=== PATIENT | female | born 1960 | race Caucasian/White ===

== ENCOUNTER 2019-04-05 14:34 | Emergency (ER) | payer OTHER ==
[2019-04-05] MEDS ORDERED: MEPERIDINE HCL 25 MG/0.5 ML ONE (15:19)
[2019-04-05] MEDS ORDERED: NA CHLORIDE 0.9% 1,000 ML ONE (15:19)
[2019-04-05] MEDS ORDERED: METOCLOPRAMIDE 10 MG/2mL INJ ONE (15:19)
--- NOTE | 2019-04-05 15:29 | RAD REPORT ---
EXAM DESCRIPTION: CT - Head Brain Wo Cont - 04/05/2019 3:15 pm CLINICAL HISTORY: Headache COMPARISON: None. TECHNIQUE: Axial 5 mm thick images of the head were obtained without IV contrast. All CT scans are performed using dose optimization technique as appropriate and may include automated exposure control or mA/KV adjustment according to patient size. FINDINGS: No intracranial hemorrhage, mass, edema or shift of mid-line structures. No acute infarcti on changes seen. No abnormal extra-axial fluid collections. Ventricles are normal. Mastoid air cells and visualized portions of the paranasal sinuses are clear. No acute bony findings. IMPRESSION: Negative non-contrast CT head examination.
[2019-04-05 16:10] LABS: Urine Blood 2+ (NEG); Urine Glucose 3+ (NEG); Urine Protein 2+ (NEG); Urine Specific Gravity 1.025 (1.005-1.030); Urine pH 5.5 (5.0-7.0)
--- NOTE | 2019-04-05 16:37 | ER ---
Nurse's Notes [facility] Name: Jeanne Ro Age: 58 yrs Sex: Female : 1960 Arrival Date: 04/05/2019 Time: 14:37 Bed 5 Private MD: Lake Cardenas Diagnosis: Migraine;Infectious mononucleosis, unspecified Presentation: 04/05 14:42 Presenting complaint: Patient states: I have had a NGO since Sunday. This is similar la1 to my other migraines but lasting much longer and also has a shocking like component, Pt seen at urgent care and referred here for intractable NGO. Transition of care: patient was not received from another setting of care. Onset of symptoms was April 05, 2019. Risk Assessment: Do you want to hurt yourself or someone else? Patient reports no desire to harm self or others. Initial Sepsis Screen: Does the patient meet any 2 criteria? HR > 90 bpm. Does the patient have a suspected source of infection? No. Patient's initial sepsis screen is negative. Care prior to arrival: None. 14:42 Method Of Arrival: Ambulatory la1 14:42 Acuity: MARY 3 la1 Triage Assessment: 14:45 Headache History: The patient has had previous headaches and this one is similar to bp previous episodes. General: Appears in no apparent distress. uncomfortable, Behavior is cooperative, appropriate for age, anxious. Pain: Complains of pain in top of head Pain currently is 10 out of 10 on a pain scale. Pain began 2-3 days ago. Also complains of photophobia. EENT: No deficits noted. Neuro: No deficits noted. Reports headache. Cardiovascular: No deficits noted. Respiratory: No deficits noted. GI: No signs and/or symptoms were reported involving the gastrointestinal system. : No signs and/or symptoms were reported regarding the genitourinary system. Derm: No deficits noted. Musculoskeletal: Circulation, motion, and sensation intact. Range of motion: intact in all extremities. Historical: - Allergies: 14:46 PENICILLINS; la1 14:46 Benicar; la1 14:46 LIZABETH INHIBITORS; la1 14:46 CEPHALOSPORINS; la1 14:46 Cipro; la1 14:46 Levaquin; la1 - Home Meds: 14:46 losartan oral oral [Active]; unknown BP medicine [Active]; la1 - PMHx: 14:46 Hypertension; Migraines; la1 - PSHx: 14:46 Cholecystectomy; Hysterectomy; Tubal ligation; colon sx; knee sx (r); la1 - Immunization history:: Adult Immunizations up to date. - Social history:: Smoking status: Patient/guardian denies using tobacco. - Ebola Screening: : No symptoms or risks identified at this time. - Family history:: not pertinent. - Hospitalizations: : No recent hospitalization is reported. Screenin:15 Abuse screen: Denies threats or abuse. Denies injuries from another. Nutritional bp screening: No deficits noted. Tuberculosis screening: No symptoms or risk factors identified. Fall Risk None identified. Assessment: 14:45 General: SEE TRIAGE NOTE. bp 15:59 Reassessment: ALL CURRENT ORDERS COMPLETED, RESULTS PENDING. bp 17:09 Reassessment: PT D/C HOME AMBULATORY WITH FAMILY, DX WITH MIGRAINE AND INFECTIOUS MONO. bp Vital Signs: 14:46 BP 157 / 99; Pulse 112; Resp 16; Temp 99.0(O); Pulse Ox 100% on R/A; Weight 70.31 kg; la1 Height 5 ft. 3 in. (160.02 cm); Pain 10/10; 15:59 BP 128 / 62; Pulse 100; Resp 14; Pulse Ox 95% ; bp 17:03 BP 136 / 82; Pulse 96; Resp 16; Temp 99; Pulse Ox 97% ; bp 14:46 Body Mass Index 27.46 (70.31 kg, 160.02 cm) la1 Garland Coma Score: 16:35 Eye Response: spontaneous(4). Verbal Response: oriented(5). Motor Response: obeys rn commands(6). Total: 15. ED Course: 14:37 Patient arrived in ED. mr 14:37 Lake Cardenas MD is Private Physician. mr 14:44 Triage completed. la1 14:46 Arm band placed on left wrist. la1 14:47 Reggie Lamb MD is Attending Physician. rn 14:50 Tuan Winslow, CANDICE is Primary Nurse. bp 15:13 CT completed. Patient tolerated procedure well. Patient moved back from CT. bq 15:15 CT Head Brain wo Cont In Process Unspecified. EDMS 15:15 Patient has correct armband on for positive identification. Bed in low position. Call bp light in reach. Side rails up X2. Adult w/ patient. 15:33 Inserted saline lock: 20 gauge in right forearm, using aseptic technique. Blood bp collected. 17:10 No provider procedures requiring assistance completed. IV discontinued, intact, bp bleeding controlled, No redness/swelling at site. Pressure dressing applied. Administered Medications: 15:32 Drug: NS 0.9% 1000 ml Route: IV; Rate: 1000 ml; Site: right forearm; bp 17:11 Follow up: IV Status: Completed infusion; IV Intake: 1000ml bp 15:33 Drug: Demerol 25 mg Route: IVP; Site: right forearm; bp 17:11 Follow up: Response: Pain is decreased bp 15:33 Drug: Reglan 10 mg Route: IVP; Site: right forearm; bp 17:11 Follow up: Response: Pain is decreased bp Intake: 17:11 IV: 1000ml; Total: 1000ml. bp Outcome: 16:36 Discharge ordered by MD. rn 17:10 Discharged to home ambulatory, with family. bp 17:10 Condition: stable 17:10 Discharge instructions given to patient, Instructed on discharge instructions, follow up and referral plans. medication usage, Demonstrated understanding of instructions, follow-up care, medications, Prescriptions given X 1. 17:12 Patient left the ED. bp Signatures: Dispatcher [employer] Mary Anne MenonsirishaLauren Roman, MD MD rn Attema, Lee, RN RN la1 Tuan Winslow RN RN bp
--- NOTE | 2019-04-05 16:37 | EDPHYS ---
Physician Documentation [facility] Name: Jeanne Ro Age: 58 yrs Sex: Female : 1960 Arrival Date: 04/05/2019 Time: 14:37 Bed 5 Private MD: Lake Cardenas ED Physician Reggie Lamb HPI: 04/05 14:54 This 58 yrs old Female presents to ER via Ambulatory with complaints of rn Headache. 14:54 The patient complains of pain to the top of head. The patient describes the headache as rn aching. Onset: The symptoms/episode began/occurred 3 day(s) ago. Associated signs and symptoms: Pertinent positives: nausea, vomiting, Pertinent negatives: altered mental status, neck stiffness, rash, sinus congestion, sinus tenderness, vision loss, vertigo. Severity of symptoms: At its worst the pain was moderate, "similar to past headaches". Headache History: The patient has had previous headaches and this one is similar to previous episodes. The patient has experienced similar episodes in the past. Reports migraine for 3 days, constant, usually gets better with Excedrin migraine, states similar to preivous migraines other than not going away and this time has electrical component to back of head, electrical component is intermittent. Reports generalized weakness and fatigue.. Historical: - Allergies: 14:46 PENICILLINS; la1 14:46 Benicar; la1 14:46 LIZABETH INHIBITORS; la1 14:46 CEPHALOSPORINS; la1 14:46 Cipro; la1 14:46 Levaquin; la1 - Home Meds: 14:46 losartan oral oral [Active]; unknown BP medicine [Active]; la1 - PMHx: 14:46 Hypertension; Migraines; la1 - PSHx: 14:46 Cholecystectomy; Hysterectomy; Tubal ligation; colon sx; knee sx (r); la1 - Immunization history:: Adult Immunizations up to date. - Social history:: Smoking status: Patient/guardian denies using tobacco. - Ebola Screening: : No symptoms or risks identified at this time. - Family history:: not pertinent. - Hospitalizations: : No recent hospitalization is reported. ROS: 14:54 Constitutional: Negative for fever, chills, and weight loss, Eyes: Negative for injury, rn pain, redness, and discharge, ENT: Negative for injury, pain, and discharge, Neck: Negative for injury, pain, and swelling, Cardiovascular: Negative for chest pain, palpitations, and edema, Respiratory: Negative for shortness of breath, cough, wheezing, and pleuritic chest pain, Abdomen/GI: Negative for abdominal pain, diarrhea, and constipation, MS/Extremity: Negative for injury and deformity, Skin: Negative for injury, rash, and discoloration, Neuro: Negative for numbness, tingling, and seizure. Exam: 14:54 Constitutional: This is a well developed, well nourished patient who is awake, alert, varnish blender to room without difficulty or assistance Head/Face: Normocephalic, atraumatic. Eyes: Pupils equal round and reactive to light, extra-ocular motions intact. Lids and lashes normal. Conjunctiva and sclera are non-icteric and not injected. Cornea within normal limits. Periorbital areas with no swelling, redness, or edema. No nystagmus ENT: Mucous membranes moist. Neck: Trachea midline, no thyromegaly or masses palpated, and no cervical lymphadenopathy. Supple, full range of motion without nuchal rigidity, or vertebral point tenderness. No Meningismus. Skin: Warm, dry with normal turgor. Normal color with no rashes, no lesions, and no evidence of cellulitis. MS/ Extremity: Pulses equal, no cyanosis. Neurovascular intact. Full, normal range of motion. Equal circumference. Neuro: Awake and alert, GCS 15, oriented to person, place, time, and situation. Cranial nerves II-XII grossly intact. Motor strength 5/5 in all extremities. Sensory grossly intact. Cerebellar exam normal. Normal gait. Vital Signs: 14:46 BP 157 / 99; Pulse 112; Resp 16; Temp 99.0(O); Pulse Ox 100% on R/A; Weight 70.31 kg; la1 Height 5 ft. 3 in. (160.02 cm); Pain 10/10; 15:59 BP 128 / 62; Pulse 100; Resp 14; Pulse Ox 95% ; bp 17:03 BP 136 / 82; Pulse 96; Resp 16; Temp 99; Pulse Ox 97% ; bp 14:46 Body Mass Index 27.46 (70.31 kg, 160.02 cm) la1 Cougar Coma Score: 16:35 Eye Response: spontaneous(4). Verbal Response: oriented(5). Motor Response: obeys rn commands(6). Total: 15. MDM: 14:47 Patient medically screened. rn 16:35 Differential diagnosis: hypertensive headache, migraine, tension headache, vasomotor rn headache, mono. Data reviewed: vital signs, nurses notes, lab test result(s), radiologic studies, CT scan, and as a result, I will discharge patient. Counseling: I had a detailed discussion with the patient and/or guardian regarding: the historical points, exam findings, and any diagnostic results supporting the discharge/admit diagnosis, lab results, radiology results, the need for outpatient follow up, to return to the emergency department if symptoms worsen or persist or if there are any questions or concerns that arise at home. Response to treatment: the patient's symptoms have markedly improved after treatment, and as a result, I will discharge patient. Special discussion: I discussed with the patient/guardian in detail that at this point there is no indication for admission to the hospital. It is understood, however, that if the symptoms persist or worsen the patient needs to return immediately for re-evaluation. 04/05 14:54 Order name: [place] Screen Profile; Complete Time: 16:23 rn 04/05 15:27 Order name: Urine Dipstick--Ancillary (enter results); Complete Time: 16:23 04/05 14:54 Order name: CT Head Brain wo Cont; Complete Time: 15:33 rn 04/05 14:54 Order name: IV Start; Complete Time: 15:32 rn 04/05 14:54 Order name: Urine Dipstick-Ancillary (obtain specimen); Complete Time: 15:13 rn Administered Medications: 15:32 Drug: NS 0.9% 1000 ml Route: IV; Rate: 1000 ml; Site: right forearm; bp 17:11 Follow up: IV Status: Completed infusion; IV Intake: 1000ml bp 15:33 Drug: Demerol 25 mg Route: IVP; Site: right forearm; bp 17:11 Follow up: Response: Pain is decreased bp 15:33 Drug: Reglan 10 mg Route: IVP; Site: right forearm; bp 17:11 Follow up: Response: Pain is decreased bp Disposition: 04/05/19 16:36 Discharged to Home. Impression: Migraine, Infectious mononucleosis, unspecified. - Condition is Stable. - Discharge Instructions: Migraine Headache, Infectious Mononucleosis. - Prescriptions for Ultram 50 mg Oral Tablet - take 1 tablet by ORAL route every 6 hours As needed; 20 tablet. - Medication Reconciliation Form, Thank You Letter, Antibiotic Education, Prescription Opioid Use form. - Follow up: Private Physician; When: As needed; Reason: Recheck today's complaints, Re-evaluation by your physician. - Problem is new. - Symptoms have improved. Signatures: Dispatcher [employer] EDMS Reggie Lamb MD MD rn Jeff Chaves RN RN la1 Tuan Winslow RN RN bp Corrections: (The following items were deleted from the chart) 14:57 14:54 Reports migraine for 3 days, constant, usually gets better with Excedrin rn migraine, states similar to preivous migraines other than not going away and this time has electrical component to back of head, electrical component is intermittent. . rn 14:58 14:54 Constitutional: Negative for fever, chills, and weight loss, Eyes: Negative for rn injury, pain, redness, and discharge, rn 17:12 16:36 04/05/2019 16:36 Discharged to Home. Impression: Migraine; Infectious bp mononucleosis, unspecified. Condition is Stable. Discharge Instructions: Migraine Headache. Forms are Medication Reconciliation Form, Thank You Letter, Antibiotic Education, Prescription Opioid Use. Follow up: Private Physician; When: As needed; Reason: Recheck today's complaints, Re-evaluation by your physician. Problem is new. Symptoms have improved. rn
== END 2019-04-05 17:12 | disposition home or self-care (01) ==
LOC: ER 14:34
DX: B27.90 Infectious mononucleosis, unspecified without complication (principal); I10 Essential (primary) hypertension; Z88.0 Allergy status to penicillin; Z88.1 Allergy status to other antibiotic agents; Z88.3 Allergy status to other anti-infective agents; Z88.8 Allergy status to other drugs, medicaments and biological substances
CPT/HCPCS: 36415; 70450; 81003; 86308; 96361; 96374; 96375; 99284; J2175; J2765; J7030

== ENCOUNTER 2019-06-11 11:25 | Emergency (ER) | payer OTHER ==
[2019-06-11] MEDS ORDERED: ONDANSETRON 4 MG/2 ML VIAL ONE ×2 (12:12→13:45)
[2019-06-11] MEDS ORDERED: MORPHINE 4 MG/ML SYR ONE (12:12)
[2019-06-11] MEDS ORDERED: DIPHENHYDRAMINE 50 MG/ML VIAL ONE (12:24)
[2019-06-11 12:33] LABS: Absolute Lymphocytes (CBC) 0.8 K/uL (0.7-4.9); Basophils % 0.2 % (0-1.3); Hematocrit 46.4 % (36.0-45.0); Lymphocytes % 7.5 % (15.3-44.8); MPV 10.1 fL (7.6-11.3); Monocytes % 3.4 % (3.3-12.3); RBC Red Blood Cell Count 5.38 M/uL (3.86-4.86)
[2019-06-11 12:53] LABS: Albumin 4.4 g/dL (3.4-5.0); Bilirubin Direct 0.2 mg/dL (0-0.2); Bilirubin Total 0.7 mg/dL (0.2-1.0); Potassium 3.9 mmol/L (3.5-5.1); Protein, Total 8.4 g/dL (6.4-8.2)
[2019-06-11 13:06] LABS: Blood Morphology Comment NOT SEEN (NOT SEEN); Platelet Estimate ADEQ; Urine White Blood Cell Casts OK
[2019-06-11 13:12] LABS: Urine Blood 2+ (NEG); Urine Glucose NEGATIVE (NEG); Urine Protein 3+ (NEG); Urine Specific Gravity >1.030 (1.005-1.030)
--- NOTE | 2019-06-11 13:57 | RAD REPORT ---
EXAM DESCRIPTION: CT - Abdomen Pelvis W Contrast - 06/11/2019 1:43 pm CLINICAL HISTORY: Abdominal pain with vomiting COMPARISON: none. TECHNIQUE: Computed axial tomography of the abdomen pelvis was obtained. 100 cc Isovue-300 was admin istered intravenously. Oral contrast was not requested which limits evaluation of bowel. All CT scans are performed using dose optimization technique as appropriate and may include automated exposure control or mA/KV adjustment according to patient size. FINDINGS: Fatty liver. Cholecystectomy The Spleen, pancreas, adrenal and kidneys appear unremarkable. There is no evidence of diverticulitis. Couple of small ventral hernias are present. An umbilical hernia is also noted. It contains a small a mount of ascites. Fluid is present throughout most of the small bowel. Small bowel caliber is upper limits normal. Flui d is also present throughout most of the colon. Postsurgical changes involve the sigmoid. IMPRESSION: Fluid within the large and small bowel may indicate an enteritis. If the patient's sympt oms persist a followup plain film abdominal series would be recommended
--- NOTE | 2019-06-11 14:15 | EDPHYS ---
Physician Documentation [facility] Name: Jeanne oR Age: 58 yrs Sex: Female : 1960 Arrival Date: 06/11/2019 Time: 11:27 Bed 18 Private MD: Lake Cardenas ED Physician Reggie Lamb HPI: 06/11 12:10 This 58 yrs old Female presents to ER via Ambulatory with complaints of jr8 Abdominal Swelling, Vomiting. 12:10 The patient presents with abdominal pain that is diffuse, abdominal distention that is jr8 diffuse. Onset: The symptoms/episode began/occurred gradually, 1 week(s) ago, and became worse today. Associated signs and symptoms: Pertinent positives: nausea, vomiting, Pertinent negatives: diarrhea, dysuria, fever, hematuria. The symptoms are described as crampy. Modifying factors: The symptoms are alleviated by nothing, the symptoms are aggravated by food, pressure. Severity of pain: At its worst the pain was moderate in the emergency department the pain is unchanged. The patient has experienced similar episodes in the past, a few times. The patient has not recently seen a physician. Abdominal distension x 1 week with generalized abdominal pain onset this morning with vomiting x 4 episodes. Reports vomit was bilious with a small amount of blood. Reports previous episodes of abdominal distension with unclear diagnosis. Historical: - Allergies: 11:29 LIZABETH INHIBITORS; hj 11:29 Benicar; hj 11:29 CEPHALOSPORINS; hj 11:29 Cipro; hj 11:29 Levaquin; hj 11:29 PENICILLINS; hj - Home Meds: 13:07 losartan Oral [Active]; unknown BP medicine [Active]; tw2 - PMHx: 11:29 Hypertension; Migraines; hj - PSHx: 11:29 Cholecystectomy; Hysterectomy; Tubal ligation; colon sx; knee sx (r); hj - Immunization history:: Adult Immunizations. - Social history:: Smoking status: . - Ebola Screening: : Patient denies travel to an Ebola-affected area in the 21 days before illness onset. ROS: 12:10 Constitutional: Negative for fever, chills, and weight loss, Eyes: Negative for injury, jr8 pain, redness, and discharge, ENT: Negative for injury, pain, and discharge, Neck: Negative for injury, pain, and swelling, Cardiovascular: Negative for chest pain, palpitations, and edema, Respiratory: Negative for shortness of breath, cough, wheezing, and pleuritic chest pain, Back: Negative for injury and pain, : Negative for injury, bleeding, discharge, and swelling, MS/Extremity: Negative for injury and deformity, Skin: Negative for injury, rash, and discoloration, Neuro: Negative for headache, weakness, numbness, tingling, and seizure. 12:10 Abdomen/GI: Positive for abdominal pain, nausea and vomiting, abdominal distension, Negative for diarrhea, black/tarry stool, rectal pain, rectal bleeding. Exam: 12:10 Constitutional: This is a well developed, well nourished patient who is awake, alert, jr8 and in no acute distress. Head/Face: Normocephalic, atraumatic. Eyes: Pupils equal round and reactive to light, extra-ocular motions intact. Lids and lashes normal. Conjunctiva and sclera are non-icteric and not injected. Cornea within normal limits. Periorbital areas with no swelling, redness, or edema. Neck: Trachea midline, no thyromegaly or masses palpated, and no cervical lymphadenopathy. Supple, full range of motion without nuchal rigidity, or vertebral point tenderness. No Meningismus. Cardiovascular: Regular rate and rhythm with a normal S1 and S2. No gallops, murmurs, or rubs. Normal PMI, no JVD. No pulse deficits. Respiratory: Lungs have equal breath sounds bilaterally, clear to auscultation and percussion. No rales, rhonchi or wheezes noted. No increased work of breathing, no retractions or nasal flaring. Back: No spinal tenderness. No costovertebral tenderness. Full range of motion. Skin: Warm, dry with normal turgor. Normal color with no rashes, no lesions, and no evidence of cellulitis. MS/ Extremity: Pulses equal, no cyanosis. Neurovascular intact. Full, normal range of motion. Neuro: Awake and alert, GCS 15, oriented to person, place, time, and situation. Cranial nerves II-XII grossly intact. Motor strength 5/5 in all extremities. Sensory grossly intact. Cerebellar exam normal. Normal gait. 12:10 Abdomen/GI: Inspection: distension, that is moderate, Bowel sounds: diminished, Palpation: moderate abdominal tenderness, in all quadrants, firm. Vital Signs: 11:29 BP 171 / 100; Pulse 108; Resp 18; Temp 99.2(TE); Pulse Ox 97% on R/A; Weight 72.57 kg; hj Height 5 ft. 3 in. (160.02 cm); Pain 7/10; 13:04 BP 145 / 79; Pulse 76; Resp 17; Pulse Ox 96% on 2 lpm NC; tw2 14:10 BP 146 / 83; Pulse 75; Resp 17; Pulse Ox 98% ; tw2 11:29 Body Mass Index 28.34 (72.57 kg, 160.02 cm) hj MDM: 11:36 Patient medically screened. jr8 14:12 Data reviewed: vital signs, nurses notes, lab test result(s), radiologic studies, CT jr8 scan, and as a result, I will discharge patient. Data interpreted: Pulse oximetry: on room air is 96 %. Interpretation: normal. Counseling: I had a detailed discussion with the patient and/or guardian regarding: the historical points, exam findings, and any diagnostic results supporting the discharge/admit diagnosis, lab results, radiology results, the need for outpatient follow up, a family practitioner, a membership sales advisor, to return to the emergency department if symptoms worsen or persist or if there are any questions or concerns that arise at home. Response to treatment: the patient's symptoms have markedly improved after treatment, patient is well hydrated. Special discussion: Based on the patient's Hx, exam, and Dx evaluation, there is no indication for emergent surgery or inpatient Tx. It is understood by the patient/guardian that if the Sx's persist or worsen they need to return immediately for re-evaluation. 06/11 11:37 Order name: Basic Metabolic Panel; Complete Time: 12:53 06/11 11:37 Order name: CBC with Diff; Complete Time: 13:20 [facility] 06/11 11:37 Order name: Creatinine for Radiology; Complete Time: 12:53 06/11 11:37 Order name: Hepatic Function; Complete Time: 12:53 [facility] 06/11 11:37 Order name: Lipase; Complete Time: 12:53 [facility] 06/11 11:58 Order name: Urine Dipstick--Ancillary (enter results); Complete Time: 13:20 06/11 11:37 Order name: IV Saline Lock; Complete Time: 11:52 [facility] 06/11 11:37 Order name: Labs collected and sent; Complete Time: 11:52 [facility] 06/11 11:50 Order name: CT Abd/Pelvis - IV Contrast Only; Complete Time: 14:00 [facility] 06/11 12:39 Order name: CBC Smear Scan; Complete Time: 13:20 EDMS Administered Medications: 11:58 Drug: Zofran 4 mg Route: IVP; Site: right antecubital; tw2 14:30 Follow up: Response: No adverse reaction; Nausea is decreased tw2 12:00 Drug: morphine 4 mg Route: IVP; Site: right antecubital; tw2 12:04 Follow up: Response: Other; Other, pt states "my arms is itching, i think i need some tw2 benadryl", provider notified. 12:11 Drug: diphenhydrAMINE 12.5 mg Route: IVP; Site: right antecubital; tw2 12:45 Follow up: Response: No adverse reaction; Marked relief of symptoms tw2 Disposition: 15:59 Co-signature as Attending Physician, Reggie Lamb MD. rn Disposition: 06/11/19 14:13 Discharged to Home. Impression: Enteritis, Vomiting. - Condition is Stable. - Discharge Instructions: Nausea and Vomiting, Adult. - Prescriptions for Zofran ODT 4 mg Oral tablet,disintegrating - place 1 tablet by TRANSLINGUAL route every 6 hours As needed; 12 tablet. Bentyl 20 mg Oral Tablet - take 1 tablet by ORAL route every 6 hours As needed; 20 tablet. - Medication Reconciliation Form, Thank You Letter, Antibiotic Education, Prescription Opioid Use form. - Follow up: Lake Cardenas MD; When: 2 - 3 days; Reason: Recheck today's complaints, Continuance of care, Re-evaluation by your physician. - Problem is new. - Symptoms have improved. Signatures: Dispatcher [employer] EDMS Reggie Lamb MD MD rn Roszak, Josh, PA PA jr8 Adryan Mayes RN RN hj Wise, Tara, RN RN tw2 Corrections: (The following items were deleted from the chart) 14:31 14:13 06/11/2019 14:13 Discharged to Home. Impression: Enteritis; Vomiting. Condition tw2 is Stable. Forms are Medication Reconciliation Form, Thank You Letter, Antibiotic Education, Prescription Opioid Use. Follow up: Lake Cardenas; When: 2 - 3 days; Reason: Recheck today's complaints, Continuance of care, Re-evaluation by your physician. Problem is new. Symptoms have improved. jr8
--- NOTE | 2019-06-11 14:15 | ER ---
Nurse's Notes [facility] Name: Jeanne Ro Age: 58 yrs Sex: Female : 1960 Arrival Date: 06/11/2019 Time: 11:27 Bed 18 Private MD: Lake Cardenas Diagnosis: Enteritis;Vomiting Presentation: 06/11 11:27 Presenting complaint: Patient states: my stomach is hurting down low since last night; hj reports N/V and feeling bloated;: denies fever and chills diarrhea; reports BM x 2 today;. Transition of care: patient was not received from another setting of care. Onset of symptoms was June 11, 2019. Risk Assessment: Do you want to hurt yourself or someone else? Patient reports no desire to harm self or others. Initial Sepsis Screen: Does the patient meet any 2 criteria? No. Patient's initial sepsis screen is negative. Does the patient have a suspected source of infection? No. Patient's initial sepsis screen is negative. Care prior to arrival: None. 11:27 Method Of Arrival: Ambulatory 11:27 Acuity: MARY 3 hj Historical: - Allergies: 11:29 LZIABETH INHIBITORS; hj 11:29 Benicar; hj 11:29 CEPHALOSPORINS; hj 11:29 Cipro; hj 11:29 Levaquin; hj 11:29 PENICILLINS; hj - Home Meds: 13:07 losartan Oral [Active]; unknown BP medicine [Active]; tw2 - PMHx: 11:29 Hypertension; Migraines; hj - PSHx: 11:29 Cholecystectomy; Hysterectomy; Tubal ligation; colon sx; knee sx (r); hj - Immunization history:: Adult Immunizations. - Social history:: Smoking status: . - Ebola Screening: : Patient denies travel to an Ebola-affected area in the 21 days before illness onset. Screenin:07 Abuse screen: Denies threats or abuse. Nutritional screening: No deficits noted. tw2 Tuberculosis screening: No symptoms or risk factors identified. Fall Risk None identified. Assessment: 11:35 General: Appears in no apparent distress. uncomfortable, Behavior is calm, cooperative, tw2 appropriate for age. Pain: Complains of pain in abdomen. Neuro: Level of Consciousness is awake, alert, obeys commands, Oriented to person, place, time, situation. Cardiovascular: Heart tones S1 S2 Patient's skin is warm and dry. Respiratory: Airway is patent Respiratory effort is even, unlabored, Respiratory pattern is regular, symmetrical, Breath sounds are clear bilaterally. GI: Abdomen is round distended, Bowel sounds present X 4 quads. Abd is soft X 4 quads Reports bloating. GI: Reports nausea. : No signs and/or symptoms were reported regarding the genitourinary system. EENT: No signs and/or symptoms were reported regarding the EENT system. Derm: No signs and/or symptoms reported regarding the dermatologic system. Musculoskeletal: Range of motion: intact in all extremities. 13:05 Reassessment: Patient appears in no apparent distress at this time. Patient and/or tw2 family updated on plan of care and expected duration. Pain level reassessed. Patient is alert, oriented x 3, equal unlabored respirations, skin warm/dry/pink. Patient states feeling better. Patient states symptoms have improved. 13:43 Reassessment: pt in CT at this time. tw2 14:31 Reassessment: Patient appears in no apparent distress at this time. Patient and/or tw2 family updated on plan of care and expected duration. Pain level reassessed. Patient is alert, oriented x 3, equal unlabored respirations, skin warm/dry/pink. Vital Signs: 11:29 BP 171 / 100; Pulse 108; Resp 18; Temp 99.2(TE); Pulse Ox 97% on R/A; Weight 72.57 kg; hj Height 5 ft. 3 in. (160.02 cm); Pain 7/10; 13:04 BP 145 / 79; Pulse 76; Resp 17; Pulse Ox 96% on 2 lpm NC; tw2 14:10 BP 146 / 83; Pulse 75; Resp 17; Pulse Ox 98% ; tw2 11:29 Body Mass Index 28.34 (72.57 kg, 160.02 cm) ED Course: 11:27 Patient arrived in ED. as 11:27 Lake Cardenas MD is Private Physician. as 11:29 Triage completed. hj 11:29 Arm band placed on left wrist. hj 11:33 Daphne Murillo RN is Primary Nurse. tw2 11:35 Placed in gown. Bed in low position. Call light in reach. Pulse ox on. NIBP on. tw2 11:36 Olu Mckenzie PA is PHCP. jr8 11:36 Reggie Lamb MD is Attending Physician. jr8 11:55 Inserted saline lock: 22 gauge in right forearm, using aseptic technique. ,using tw2 aseptic technique. per josefina Steele Blood collected. 13:45 CT Abd/Pelvis - IV Contrast Only In Process Unspecified. EDMS 14:13 Lake Cardenas MD is Referral Physician. jr8 14:29 No provider procedures requiring assistance completed. IV discontinued, intact, tw2 bleeding controlled, No redness/swelling at site. Pressure dressing applied. Administered Medications: 11:58 Drug: Zofran 4 mg Route: IVP; Site: right antecubital; tw2 14:30 Follow up: Response: No adverse reaction; Nausea is decreased tw2 12:00 Drug: morphine 4 mg Route: IVP; Site: right antecubital; tw2 12:04 Follow up: Response: Other; Other, pt states "my arms is itching, i think i need some tw2 benadryl", provider notified. 12:11 Drug: diphenhydrAMINE 12.5 mg Route: IVP; Site: right antecubital; tw2 12:45 Follow up: Response: No adverse reaction; Marked relief of symptoms tw2 Outcome: 14:13 Discharge ordered by . jr8 14:29 Discharged to home ambulatory, with family. tw2 14:29 Condition: stable 14:29 Discharge instructions given to patient, family, Instructed on discharge instructions, follow up and referral plans. medication usage, Demonstrated understanding of instructions, follow-up care, medications, Prescriptions given X 2. 14:31 Patient left the ED. tw2 Signatures: Dispatcher [employer] EDPA Claire Johns as Olu Mckenzie PA PA jr8 Adryan Mayes RN RN Daphne Murillo RN RN tw2 Corrections: (The following items were deleted from the chart) 11:31 11:27 Presenting complaint: Patient states: my stomach is hurting down low since last hj night; reports N/V and feeling bloated;: denies fever and chills diarrhea; hj 11:31 11:29 Pulse 108bpm; Resp 18bpm; Pulse Ox 97% RA; Temp 99.2F Temporal; 72.57 kg; Height hj 5 ft. 3 in.; BMI: 28.3; Pain 7/10; hj
== END 2019-06-11 14:31 | disposition home or self-care (01) ==
LOC: ER 11:25
DX: K52.9 Noninfective gastroenteritis and colitis, unspecified (principal); I10 Essential (primary) hypertension; Z88.0 Allergy status to penicillin; Z88.1 Allergy status to other antibiotic agents; Z88.3 Allergy status to other anti-infective agents
CPT/HCPCS: 36415; 74177; 80048; 80076; 81003; 83690; 85025; J2405; Q9967

== ENCOUNTER 2025-08-15 13:50 | Emergency (ER) | payer OTHER ==
[2025-08-15 14:50] LABS: Absolute Lymphocytes (CBC) 1.3 K/uL (0.7-4.9); Hematocrit 31.2 % (36.0-45.0); Hemoglobin 10.7 g/dL (12.0-15.0); MCH 29.0 pg (27.0-35.0); MCHC 34.4 g/dL (32.0-36.0); MCV 84.2 fL (80-100); MPV 9.3 fL (7.6-11.3); Nucleated RBC Absolute Count 0.0 (0-0); Nucleated Red Blood Cells % 0.2 % (0-0); RBC Red Blood Cell Count 3.71 M/uL (3.86-4.86); White Blood Count 5.70 thou/uL (4.3-10.9)
[2025-08-15 14:53] LABS: PT Prothrombin Time 12.5 SECONDS (10-13.0); PTT, Activated Partial Thromb 32.3 SECONDS (27.2-37.4); Protime INR 1.11
[2025-08-15 15:06] LABS: ALT/SGPT 31.0 U/L (13-56); AST/SGOT 16.0 U/L (15-37); Albumin 3.3 g/dL (3.4-5.0); Albumin/Globulin Ratio 0.9 (1.1-1.8); Alkaline Phosphatase 148.0 U/L (45-117); Anion Gap 9.8 mEq/L (5.0-15.0); BUN Blood Urea Nitrogen 21.0 mg/dL (7-18); Bilirubin Indirect, Calculated 1.3 mg/dL (0.2-0.8); Globulin 3.6 g/dL (2.3-3.5); Glucose Level 251.0 mg/dL (74-106); NT PRO-BNP 90.0 pg/mL (<125); Potassium 3.8 mEq/L (3.5-5.1); Troponin High Sensitivity 7.2 pg/mL (<58.9)
--- NOTE | 2025-08-15 15:29 | RAD REPORT ---
EXAMINATION: CTA CHEST PE CLINICAL INDICATION: DYSPNEA TECHNIQUE: This examination was performed according to an angiographic protocol with 3D post-processi ng. This involves 3D reconstructions, MIPs, volume rendered images and/or shaded surface rendering. One or more of the following dose reduction techniques were used: Automated exposure control, adjustm ent of the mA and/or kV according to patient size, and/or iterative reconstruction. Unless otherwise specified, incidental findings do not require dedicated imaging follow-up. COMPARISON: No prior exam. FINDINGS: PULMONARY ARTERIES: Normal caliber. No evidence of pulmonary emboli to the subsegmental level. THORACIC AORTA: Normal caliber and configuration. LUNGS: No evidence of airspace or interstitial process. No nodules. Mild diffuse COPD. PLEURA: No pleural effusion. No pneumothorax. MEDIASTINUM AND LYMPH NODES: Mild bilateral hilar and mediastinal lymphadenopathy. OSSEOUS STRUCTURES AND CHEST WALL: Intact. UPPER ABDOMEN: No significant abnormalities. IMPRESSION: No evidence of pulmonary emboli to the subsegmental level. Mild COPD.
--- NOTE | 2025-08-15 15:31 | RAD REPORT ---
EXAMINATION: CT ABDOMEN AND PELVIS WITH CONTRAST CLINICAL INDICATION: recent retroperitoneal hematoma following cath, pain/sob TECHNIQUE: CT abdomen and pelvis was performed, after the administration of IV contrast, as per [facility] protocol. Axial, sagittal and coronal reconstructions were obtained. One or more of the following dose reduction techniques were used: Automated exposure control, adjustment of the mA and k V according to patient size, and iterative reconstruction. Unless otherwise specified, incidental findings do not require dedicated imaging follow-up. COMPARISON: 08/25/2023 FINDINGS: LOWER CHEST: The visualized lung bases are clear. LIVER: Normal in size and contour. No focal lesion. Cholecystectomy clips. SPLEEN: Normal size. No focal lesion. PANCREAS: No mass, ductal dilation, or phyllis-pancreatic fluid. ADRENALS: Normal; no mass. KIDNEYS: Normal size and contour. No hydronephrosis. GASTROINTESTINAL TRACT: No evidence of free air, significant intra-abdominal free fluid, bowel obstru ction or abscess. Small fat-containing ventral hernia containing a small section of small intestine without obstruction. Small amount of fat stranding is seen right retroperitoneal space. APPENDIX: Normal appendix. LYMPH NODES: No lymphadenopathy. MUSCULOSKELETAL: Vertebroplasty cement is noted L1 vertebral body. ADDITIONAL FINDINGS: Aortoiliac atherosclerosis. IMPRESSION: No acute abnormalities seen in the abdomen or pelvis.
--- NOTE | 2025-08-15 15:55 | RAD REPORT ---
EXAMINATION: ONE VIEW CHEST XR CLINICAL INDICATION: recent heart cath, sob TECHNIQUE: Frontal chest projection is submitted. Examination is limited by patient positioning and t echnique. COMPARISON: No prior exam. FINDINGS: The lungs are diffusely emphysematous but grossly clear. The heart is upper limit of normal in size. No displaced fractures identified. IMPRESSION: COPD without an acute process suspected.
[2025-08-15] MEDS ORDERED: LEVALBUTEROL 1.25 MG/3 ML NEB ONE (16:04)
--- NOTE | 2025-08-15 16:39 | EDPHYS ---
Physician Documentation [facility] Name: Jeanne Ro Age: 64 yrs Sex: Female : 1960 Arrival Date: 08/15/2025 Time: 13:50 Bed 7 Private MD: ED Physician Reggie Lamb HPI: 08/15 15:12 This 64 yrs old Female presents to ER via Ambulatory with complaints of Shortness Of rn Breath, Blood Pressure Problem - LOW, Dizziness, Lightheaded. 15:12 Patient reports shortness of breath, dizzy lightheaded, malaise and abdominal pain. rn Patient reports had a heart cath last week that unfortunately resulted in a retroperitoneal hematoma. Patient had drop in hemoglobin, was 9.7 upon discharge. Patient told could be a week to 4 weeks for resolution but thought to be safe for discharge. Patient reports has not felt well since discharge and today felt more lightheaded when standing.. Historical: - Allergies: 14:06 LIZABETH INHIBITORS; hb 14:06 Benicar; hb 14:06 CEPHALOSPORINS; hb 14:06 Cipro; hb 14:06 Levaquin; hb 14:06 PENICILLINS; hb - Home Meds: 14:06 Brilinta oral [Active]; isosorbide mononitrate 40 mg Oral tablet [Active]; hb - PMHx: 14:06 diabetes mellitus; Hypertension; Diverticulitis; Migraines; hb - PSHx: 14:06 Cholecystectomy; Sigmoid colon removal; Total abdominal hysterectomy; Heart Stent hb 07/2025 (Total abdominal hysterectomy); - Immunization history:: Adult Immunizations up to date. - Infectious Disease History:: Denies. - Family history:: not pertinent. - Social history:: Smoking status: Patient denies any tobacco usage or history of. - Hospitalizations: : Patient was recently seen at. ROS: 15:12 Constitutional: Negative for fever, chills, and weight loss, Neck: Negative for injury, rn pain, and swelling, Cardiovascular: Negative for chest pain, palpitations, and edema, Respiratory: Positive for shortness of breath Abdomen/GI: Positive for abdominal and flank pain MS/Extremity: Negative for injury and deformity, Skin: Negative for injury, rash, and discoloration, Neuro: Positive for generalized weakness Exam: 15:12 Constitutional: This is a well developed, well nourished patient who is awake, alert, rn and in no acute distress. Head/Face: Normocephalic, atraumatic. Eyes: Normal conjunctiva Cardiovascular: Regular rate and rhythm. No pulse deficits. Respiratory: Mild tachypnea Abdomen/GI: Soft, mild right-sided tenderness. No masses or distention MS/ Extremity: Pulses equal, no cyanosis. Neuro: Awake and alert, GCS 15 15:29 ECG was reviewed by the Attending Physician. rn Vital Signs: 14:04 BP 133 / 75; Pulse 81; Resp 15; Temp 98.3(O); Pulse Ox 96% on R/A; Weight 56.25 kg; hb 17:11 BP 123 / 74; Pulse 69; Resp 16; Pulse Ox 98% on R/A; iw MDM: 13:58 Medical Screening Exam initiated rn 15:45 Independent interpretation of the following test(s) in the Emergency Department CT rn Scan: My interpretation is CT chest abdomen pelvis images negative for pneumothorax/pulmonary edema/hemorrhage per my interpretation. 15:55 Differential diagnosis: Anemia Anxiety Reaction Chronic Obstructive Pulmonary Disease rn Myocardial Infarction pneumonia, Pneumothorax pulmonary edema, Pulmonary Embolism. Data reviewed: vital signs, nurses notes, lab test result(s), EKG, radiologic studies, CT scan, and as a result, I will discharge patient. Consideration of Admission/Observation Escalation of care including admission/observation considered. Escalation considered as well as transfer but no acute findings and workup. Most likely combination of small things including COPD that has possibly been uncovered or unmasked by anemia. Joint decision made with patient and significant other that can be discharged safely. Care significantly affected by the following chronic conditions: Diabetes, Hypertension, Chronic Obstructive Pulmonary Disease. Counseling: I had a detailed discussion with the patient and/or guardian regarding the historical points, exam findings, and any diagnostic results supporting the discharge/admit diagnosis, lab results, radiology results, the need for outpatient follow up, to return to the emergency department if symptoms worsen or persist or if there are any questions or concerns that arise at home. Response to treatment: the patient's symptoms have mildly improved after treatment, and as a result, I will discharge patient. Special discussion: I discussed with the patient/guardian in detail that at this point there is no indication for admission to the hospital. It is understood, however, that if the symptoms persist or worsen the patient needs to return immediately for re-evaluation. Based on the history and exam findings, there is no indication for further emergent testing or inpatient evaluation. I discussed with the patient/guardian the need to see the product/industry consultant for further evaluation of the symptoms. I discussed with the patient/guardian the need to see the primary care provider for further evaluation of the symptoms. ED course: No acute findings in workup. CT PE protocol negative. CT abdomen pelvis negative for retroperitoneal hematoma. Hemoglobin is up from 9.7-10.7. CT PE consistent with COPD but no acute infiltrate. Stable vital signs. Will discharge with inhaler and given return precautions. Patient has likely had COPD for a while and now uncovered and cannot compensate now that she is anemic. Baseline hemoglobin for patient is 13-14 per patient and currently sitting at 10.7, but is an increase from 9.7 last week. I have personally reviewed all of the results, including but not limited to blood tests and imaging deemed necessary to safely discharge this patient at this time. All results given to and printed out for patient. I personally went over all the results with the patient and answered all questions. Patient will follow-up with PCP and or specialist as discussed. Return precautions given and understood.. 16:36 ED course: Patient feels better after nebulizer treatment. Will discharge home with rn albuterol.. 08/15 14:20 Order name: Basic Metabolic Panel; Complete Time: 15:10 rn 08/15 14:20 Order name: CBC with Diff; Complete Time: 15:10 08/15 14:20 Order name: LFT's; Complete Time: 15:10 08/15 14:20 Order name: NT PRO-BNP; Complete Time: 15:10 08/15 14:20 Order name: PT-INR; Complete Time: 15:10 08/15 14:20 Order name: Troponin HS; Complete Time: 15:10 08/15 14:20 Order name: Ptt, Activated; Complete Time: 15:10 08/15 14:20 Order name: XRAY Chest (1 view); Complete Time: 15:57 rn 08/15 14:20 Order name: CT Chest For PE Angio; Complete Time: 15:34 08/15 14:20 Order name: CT Abd/Pelvis - IV Contrast Only; Complete Time: 15:34 08/15 14:20 Order name: Cardiac monitoring; Complete Time: 14:33 rn 08/15 14:20 Order name: EKG - Nurse/Tech; Complete Time: 14:33 rn 08/15 14:20 Order name: IV Saline Lock; Complete Time: 14:33 rn 08/15 14:20 Order name: Labs collected and sent; Complete Time: 14:33 rn 08/15 14:20 Order name: O2 Per Protocol; Complete Time: 14:33 rn 08/15 14:20 Order name: O2 Sat Monitoring; Complete Time: 14:33 rn EC:29 Rate is 76 beats/min. Rhythm is regular. QRS [place] is Normal. DC interval is normal. QRS rn interval is prolonged at 144 msec. QT interval is normal. No Q waves. T waves are Normal. Clinical impression: NSR w/ Non-specific ST/T Changes. Reviewed by me. Administered Medications: 16:09 Drug: Levalbuterol Inhalation 1.25 mg Inhalation once Route: Inhalation; nh2 Disposition Summary: 08/15/25 16:38 Discharge Ordered Notes: Location: Home rn Problem: new rn Symptoms: have improved rn Condition: Stable rn Diagnosis - Dyspnea, unspecified rn - COPD/ Chronic obstructive pulmonary disease, unspecified rn - Anemia, unspecified rn Followup: rn - With: Private Physician - When: As needed - Reason: Recheck today's complaints, Re-evaluation by your physician Discharge Instructions: - Discharge Summary Sheet rn - Anemia rn - Chronic Obstructive Pulmonary Disease rn - Shortness of Breath, Adult rn Forms: - Medication Reconciliation Form rn - Antibiotic returning officer - Prescription Opioid Use rn - Patient Portal Instructions rn - Leadership Thank You Letter rn Prescriptions: - albuterol sulfate 90 mcg/actuation Inhalation HFA Aerosol Inhaler - inhale 2 puff INHALATION route every 4 to 6 hours As needed as needed for rn shortness of breath or wheezing; 1 unit; Refills: 0, Product Selection Permitted Signatures: Dispatcher [employer] EDMS Reggie Lamb MD MD rn Baxter, Heather, RN RN hb Hernandez Jr, Noel, RN RN nh2 Corrections: (The following items were deleted from the chart) 14:21 14:21 BASIC METABOLIC PANEL+C.LAB.BRZ ordered. EDMS EDMS 14:21 14:21 CBC+H.LAB.BRZ ordered. EDMS EDMS 14:21 14:21 HEPATIC FUNCTION+C.LAB.BRZ ordered. EDMS EDMS 14:21 14:21 PROBNP+C.LAB.BRZ ordered. EDMS EDMS 14:21 14:21 PROTIME (+INR)+COAG.LAB.BRZ ordered. EDMS EDMS 14:21 14:21 Troponin High Sensitivity+C.LAB.BRZ ordered. EDMS EDMS 14:21 14:21 PTT, ACTIVATED+COAG.LAB.BRZ ordered. EDMS EDMS 14:21 14:21 Chest Single View+RAD.RAD.BRZ ordered. EDMS EDMS 14:21 14:21 Chest For PE Angio+CT.RAD.BRZ ordered. EDMS EDMS 14:21 14:21 Abdomen Pelvis W Con+CT.RAD.BRZ ordered. EDMS EDMS 15:20 15:12 Constitutional: This is a well developed, well nourished patient who is awake, rn alert, and in no acute distress. rn
--- NOTE | 2025-08-15 16:39 | ER ---
Nurse's Notes [facility] Name: Jeanne Ro Age: 64 yrs Sex: Female : 1960 Arrival Date: 08/15/2025 Time: 13:50 Bed 7 Private MD: Diagnosis: Dyspnea, unspecified;COPD/ Chronic obstructive pulmonary disease, unspecified;Anemia, unspecified Presentation: 08/15 14:04 Chief complaint: Had heart cath + stent placement last Tuesday 08/07, developed a hb retroperitoneal hematoma, discharged from [facility] Friday 08/10, c/o worsening SOB, fatigue, and dizziness today. Coronavirus screen: At this time, the client does not indicate any symptoms associated with coronavirus-19. Ebola Screen: No symptoms or risks identified at this time. Initial Sepsis Screen: Does the patient meet any 2 criteria? No. Patient's initial sepsis screen is negative. Does the patient have a suspected source of infection? No. Patient's initial sepsis screen is negative. Risk Assessment: Do you want to hurt yourself or someone else? Patient reports no desire to harm self or others. Onset of symptoms was August 15, 2025. 14:04 Method Of Arrival: Ambulatory hb 14:04 Acuity: MARY 2 hb Historical: - Allergies: 14:06 LIZABETH INHIBITORS; hb 14:06 Benicar; hb 14:06 CEPHALOSPORINS; hb 14:06 Cipro; hb 14:06 Levaquin; hb 14:06 PENICILLINS; hb - Home Meds: 14:06 Brilinta oral [Active]; isosorbide mononitrate 40 mg Oral tablet [Active]; hb - PMHx: 14:06 diabetes mellitus; Hypertension; Diverticulitis; Migraines; hb - PSHx: 14:06 Cholecystectomy; Sigmoid colon removal; Total abdominal hysterectomy; Heart Stent hb 07/2025 (Total abdominal hysterectomy); - Immunization history:: Adult Immunizations up to date. - Infectious Disease History:: Denies. - Family history:: not pertinent. - Social history:: Smoking status: Patient denies any tobacco usage or history of. - Hospitalizations: : Patient was recently seen at. Screenin:19 [facility] ED Fall Risk Assessment (Adult) History of falling in the last 3 months, nh2 including since admission No falls in past 3 months (0 pts) Confusion or Disorientation No (0 pts) Intoxicated or Sedated No (0 pts) Impaired Gait No (0 pts) Mobility Assist Device Used No (0 pt) Altered Elimination No (0 pt) Score/Fall Risk Level 0 - 2 = Low Risk Oriented to surroundings, Maintained a safe environment, Educated pt \T\ family on fall prevention, incl call for assistance when getting out of bed, Assessed \T\ reinforced patient's understanding of fall precautions. Abuse screen: Denies threats or abuse. Denies injuries from another. Nutritional screening: No deficits noted. Tuberculosis screening: No symptoms or risk factors identified. Assessment: 14:19 General: Appears in no apparent distress. Behavior is calm, cooperative, appropriate nh2 for age. Pain: Denies pain. Neuro: Level of Consciousness is awake, alert, obeys commands, Oriented to person, place, time, situation, Reports dizziness, Denies headache. Cardiovascular: Reports chest pressure Heart tones S1 S2 present Patient's skin is warm and dry. Rhythm is sinus rhythm. Respiratory: Reports shortness of breath Airway is patent Trachea midline Respiratory effort is even, unlabored, Respiratory pattern is regular, symmetrical, Breath sounds are clear bilaterally. Onset: The symptoms/episode began/occurred this morning, the patient has moderate shortness of breath. GI: Abdomen is round non-distended, Patient currently denies diarrhea, nausea, vomiting. : No signs and/or symptoms were reported regarding the genitourinary system. : Denies burning with urination. EENT: No signs and/or symptoms were reported regarding the EENT system. Derm: Reports Bruising of R thigh. Musculoskeletal: Circulation, motion, and sensation intact. Range of motion: intact in all extremities. Vital Signs: 14:04 BP 133 / 75; Pulse 81; Resp 15; Temp 98.3(O); Pulse Ox 96% on R/A; Weight 56.25 kg; hb 17:11 BP 123 / 74; Pulse 69; Resp 16; Pulse Ox 98% on R/A; iw ED Course: 13:53 Patient arrived in ED. cj3 13:58 Reggie Lamb MD is Attending Physician. rn 14:06 Triage completed. hb 14:19 Bernard Mcpherson Jr, RN is Primary Nurse. nh2 14:19 Patient has correct armband on for positive identification. Bed in low position. Call nh2 light in reach. Side rails up X2. Provided Education on: using call light for assistance. 14:23 Arm band placed on right wrist. nh2 14:33 Inserted saline lock: 20 gauge in right antecubital area, using aseptic technique. nh2 Blood collected. Flushed with 10 mL NS. 15:24 CT Chest For PE Angio In Process Unspecified. EDMS 15:24 CT Abd/Pelvis - IV Contrast Only In Process Unspecified. EDMS 15:50 XRAY Chest (1 view) In Process Unspecified. EDMS 17:11 No provider procedures requiring assistance completed. IV discontinued, intact, iw bleeding controlled, No redness/swelling at site. Pressure dressing applied. Administered Medications: 16:09 Drug: Levalbuterol Inhalation 1.25 mg Inhalation once Route: Inhalation; nh2 Medication: 14:19 VIS not applicable for this client. nh2 Outcome: 16:38 Discharge ordered by . rn 17:11 Discharged to home ambulatory, with family, iw 17:11 Condition: good 17:11 Discharge instructions given to patient, family, Instructed on discharge instructions, follow up and referral plans. medication usage, Demonstrated understanding of instructions, follow-up care, medications, Prescriptions given X 1, 17:12 Patient left the ED. iw Signatures: Dispatcher [employer] EDMS Jumana Kellogg RN RN iw Reggie Lamb MD MD rn Baxter, Heather, RN RN hb Hernandez Jr, Noel, RN RN [facility] Lyric Rich cj3 Corrections: (The following items were deleted from the chart) 14:33 14:19 Respiratory: Reports shortness of breath Airway is patent Trachea midline nh2 Respiratory effort is even, unlabored, Respiratory pattern is regular, symmetrical, Breath sounds are clear bilaterally. the patient has moderate shortness of breath nh2
[2025-08-15 17:16] VITALS: TEMP 98.3
[2025-08-15 17:18] VITALS: BP 123/74; O2SAT 98
== END 2025-08-15 17:12 | disposition home or self-care (01) ==
LOC: ER 13:50
DX: R06.00 Dyspnea, unspecified (principal); D64.9 Anemia, unspecified; J44.9 Chronic obstructive pulmonary disease, unspecified; I10 Essential (primary) hypertension; E11.9 Type 2 diabetes mellitus without complications; Z95.5 Presence of coronary angioplasty implant and graft; Z88.0 Allergy status to penicillin; Z88.1 Allergy status to other antibiotic agents; Z88.8 Allergy status to other drugs, medicaments and biological substances
CPT/HCPCS: 93005; 85025; 80048; 36415; 85610; 80076; 85730; 84484; 83880; 71275; 74177; 71045; 99284; Q9967; J7614